=== PATIENT | male | born 1975 | race Caucasian/White ===

== ENCOUNTER 2020-09-14 18:35 | Observation (INO) | payer SELFPAY ==
[2020-09-14] VITALS (7 sets, daily range): BP systolic 151–159; BP diastolic 101–111; PULSE 111–126; RESP 18–26; TEMP 36.1–36.9; O2SAT 92–99; BMI 43.9
--- NOTE | ~2020-09-14 | XR_ITS ---
EXAMINATION: XR chest 1V portable DATE: 09/14/2020 19:44 INDICATION: Shortness of breath. Chest pain on inspiration. Cough. TECHNIQUE: A single frontal view of the chest was obtained. COMPARISON: None. FINDINGS: The chest demonstrates clear lungs without pneumonia, pleural effusion, or pneumothorax. Th e heart size is normal. IMPRESSION: 1. No acute cardiopulmonary disease. Reviewed, dictated and finalized at location A.
--- NOTE | 2020-09-14 19:05 | ECG_ITS ---
Measurements Intervals [place] Rate: 118 P: 71 KS: 120 QRS: 55 QRSD: 76 T: 88 QT: 307 QTc: 432 Interpretive Statements SINUS TACHYCARDIA BORDERLINE T WAVE ABNORMALITY- HIGH LATERAL LEADS ABNORMAL ECG Electronically Signed On 09-14-2020 19:54:22 CDT by Ron Ford D.O.
[2020-09-14 19:20] LABS: Basophils Absolute Auto 0.08 K/mm3 (0.00-0.10); Basophils Percent Auto 0.5 % (0.0-1.0); Eosinophils Absolute Auto 0.28 K/mm3 (0.02-0.50); Eosinophils Percent Auto 1.8 % (1.0-6.0); Hematocrit 42.9 % (40.0-54.0); Hemoglobin 14.3 g/dL (14.0-18.0); Immature Granulocyte Absolute 0.06 K/mm3 (0.00-0.00); Immature Granulocyte Percent A 0.4 % (0.0-0.0); Lymphocytes Absolute Auto 1.92 K/mm3 (1.10-4.50); Lymphocytes Percent Auto 12.1 % (18.0-42.0); Mean Corpuscular HGB Conc 33.3 g/dL (32.0-36.0); Mean Corpuscular Hemoglobin 29.1 pg (27.0-31.0); Mean Corpuscular Volume 87.4 fL (78.0-102.0); Mean Platelet Volume 9.2 fl (8.7-11.0); Monocytes Percent Auto 6.9 % (2.0-11.0); Neutrophils Absolute Auto 12.4 K/mm3 (1.7-7.2); Neutrophils Percent Auto 78.3 % (50.0-70.0); Platelet Count Result 322 K/mm3 (150-420); Red Blood Count 4.91 M/mm3 (4.70-6.10); Red Cell Distribution Width 13.2 % (11.6-14.4); White Blood Count 15.9 K/mm3 (4.8-10.8)
--- NOTE | 2020-09-14 19:28 | ED.GENADULT ---
HPI - General Adult General Chief complaint: Shortness of Breath/Dyspnea Stated complaint: SOB, cough Source: patient Mode of arrival: ambulatory Limitations: no limitations History of Present Illness HPI narrative: Alex is a 45M with a PMH of tobacco abuse, obesity and hypertension that presented to the ED with shortness of breath. He started feeling bad yesterday morning with fatigue and congestion. It progressed to shortness of breath, a dry cough, fatigue, and several loose stools. He denies lightheadedness and chest pain. Related Data Home Medications Medication Instructions Recorded Confirmed losartan 25 mg PO DAILY 09/14/20 09/14/20 Allergies Allergy/AdvReac Type Severity Reaction Status Date / Time No Known Allergies Allergy Verified 09/14/20 18:52 Review of Systems Constitutional: Constitutional: Reports as per HPI, Reports chills and Reports fatigue Eyes: Eyes: Reports as per HPI and Reports no additional eye complaints ENT: Reports as per HPI Cardiovascular: Cardiovascular: Reports as per HPI Respiratory: Respiratory: Reports as per HPI Gastrointestinal: Gastrointestinal: Reports as per HPI Genitourinary: Genitourinary: Reports no additional male genitourinary complaints Musculoskeletal: Musculoskeletal: Reports no additional musculoskeletal complaints Integumentary/Breasts: Skin/Breast: Reports system reviewed and no additional complaints, except as docu Neurologic: Reports system reviewed and no additional complaints, except as documented Endocrine: Endocrine: Reports no additional endocrine complaints Hematologic/Lymphatic: Hematologic/Lymphatic: Reports no additional hematologic/lymphatic complaints Allergic/Immunologic: Allergic/Immunologic: Reports no additional allergic/immunologic complaints Exam Const: General: alert; No confusion Orientation/consciousness: patient oriented x3 Limitations: No altered mental status Other: In mild to moderate distress with increased work of breathing. HENMT: Head: normal to inspection Mouth: Yes Normal oral and palatal mucosa present Other: atraumatic Eyes: Pupils: Equal, round and reactive pupils present Neck: Neck: normal visual inspection Chest: Chest palpation & inspection: normal inspection of the chest Resp: Effort & Inspection: labored, tachypneic and uses accessory muscles Other: Bilateral rales from the mid lung down Cardio: Rate: tachycardic Heart sounds: no murmurs GI: Inspection: non-distended GI Palp: Yes Soft to palpation, No Tenderness to palpation present (GI) and No Guarding due to palpation present (GI) Back/Spine/Pelvis: Back: no CVA tenderness Skin: General skin exam: normal color Rashes: no rashes Neuro: General: patient oriented x3, moves all extremities, no meningeal signs, no focal motor deficits and CN's II-XI intact bilaterally Speech: normal speech Extrem: General: normal to inspection Psych: Appearance: grossly normal Mental Status: mental status grossly normal Affect: normal affect Course Course Emergency Course: Christiano was evaluated. He was given albuterol for the wheezing. Labs came back with leukocytosis but otherwise largely unremarkable. However, his clinical presentationis concerning for sepsis so cultures were collected and he was given 750 of levaquin and started on fluids. EKG showed NSR with a rate of 118, normal axis, and no ST elevation/depression He will be admitted for observation and continued treatment. Vital Signs Vital signs: Vital Signs Pulse Rate 126 H 09/14/20 18:54 Temperature 98.4 F 09/14/20 21:43 Pulse Rate 111 H 09/14/20 21:43 Respiratory Rate 22 H 09/14/20 21:43 Blood Pressure 151/101 H 09/14/20 21:43 Pulse Oximetry 95 09/14/20 21:43 Medical Decision Making Vital Signs Vital Signs: Vital Signs Pulse Rate 126 H 09/14/20 18:54 Temperature 98.4 F 09/14/20 21:43 Pulse Rate 111 H 09/14/20 21:43 Respiratory Rate
[2020-09-14 19:33] LABS: D Dimer 0.19 mg/L (0.19-0.50); Prothrombin Time 10.6 Seconds (9.50-12.10)
[2020-09-14 19:37] LABS: Lactic Acid Reflex 1.1 mmol/L (0.4-2.0)
[2020-09-14 19:43] LABS: Alanine Aminotransferase 61 U/L (16-63); Alkaline Phosphatase 108 U/L (46-116); Anion Gap 11 mmol/L (8-16); Aspartate Amino Transferase 23 U/L (15-37); Bilirubin,Total 0.7 mg/dL (0.00-1.00); Blood Urea Nitrogen 11 mg/dL (7-18); Calcium 9.4 mg/dL (8.5-10.1); Carbon Dioxide 25 mmol/L (21-32); Chloride 99 mmol/L (98-108); Estimated CRCL calculation 122 ml/min; Estimated Glomerular Filt Rate > 60; Glucose 118 mg/dL (70-99); Osmolality Calculated 280 mOsm/kg (285-295); Potassium 4.1 mmol/L (3.5-5.1); Sodium 135 mmol/L (136-145); Total Protein 7.9 g/dL (6.4-8.2); Troponin I 4.7 ng/L (0.00-60.4)
[2020-09-14 19:46] LABS: NT Pro B Type Natriuretic Pept 23 pg/mL (0-125)
[2020-09-14 19:56] LABS: Influenza A QL RT-PCR Negative (Negative); Influenza B QL RT-PCR Negative (Negative); SARS-CoV-2 RNA PCR Negative (Negative)
[2020-09-14] MEDS: SODIUM CHLORIDE 0.9% IV 1,000 ML 999 ML IV CONT ×2 (20:45→22:51)
[2020-09-14] MEDS: ALBUTEROL SULFATE (*SP) INHALER 2 PUFF INHALATION (20:57)
--- NOTE | 2020-09-14 21:50 | ADMGEN ---
This patient, Alex Pulido, was admitted to 2nd Floor Room 209-1. Patient oriented to hospital policies and general routines including ID bracelet, bed and alarms, visiting hours, pain management, procedures, bathroom and other care routines, personal items, smoking policy, room service/diet, and visiting hours. Information on how to activate the Rapid Response Team has been discussed. Patient/Family are encouraged to report perceived risks to care and to ask questions if they do not understand what they are told or what they should do.
[2020-09-15] VITALS (11 sets, daily range): BP systolic 125–169; BP diastolic 92–132; PULSE 102–128; RESP 22–28; TEMP 36.4–37.2; O2SAT 94–98
[2020-09-15] MEDS: SODIUM CHLORIDE 0.9% IV 1,000 ML 150 ML IV CONT ×2 (00:02→08:48)
[2020-09-15] MEDS: HYDROcodone/acetaminophen (*CRX) 5-325 MG TABLET 1 TAB PO (00:47)
[2020-09-15 05:28] LABS: Basophils Absolute Auto 0.06 K/mm3 (0.00-0.10); Basophils Percent Auto 0.5 % (0.0-1.0); Eosinophils Absolute Auto 0.44 K/mm3 (0.02-0.50); Hematocrit 38.9 % (40.0-54.0); Hemoglobin 12.6 g/dL (14.0-18.0); Immature Granulocyte Absolute 0.03 K/mm3 (0.00-0.00); Immature Granulocyte Percent A 0.3 % (0.0-0.0); Lymphocytes Absolute Auto 2.31 K/mm3 (1.10-4.50); Lymphocytes Percent Auto 21.1 % (18.0-42.0); Mean Corpuscular HGB Conc 32.4 g/dL (32.0-36.0); Mean Corpuscular Hemoglobin 29.2 pg (27.0-31.0); Mean Corpuscular Volume 90.3 fL (78.0-102.0); Mean Platelet Volume 9.2 fl (8.7-11.0); Monocytes Absolute Auto 0.88 K/mm3 (0.10-0.90); Neutrophils Absolute Auto 7.2 K/mm3 (1.7-7.2); Neutrophils Percent Auto 66.1 % (50.0-70.0); Platelet Count Result 291 K/mm3 (150-420); Red Blood Count 4.31 M/mm3 (4.70-6.10); Red Cell Distribution Width 13.6 % (11.6-14.4)
[2020-09-15 05:36] LABS: Anion Gap 9 mmol/L (8-16); Blood Urea Nitrogen 12 mg/dL (7-18); Calcium 8.5 mg/dL (8.5-10.1); Carbon Dioxide 27 mmol/L (21-32); Chloride 103 mmol/L (98-108); Estimated CRCL calculation 133 ml/min; Estimated Glomerular Filt Rate > 60; Glucose 103 mg/dL (70-99); Osmolality Calculated 287 mOsm/kg (285-295); Potassium 3.9 mmol/L (3.5-5.1); Sodium 139 mmol/L (136-145)
[2020-09-15 05:39] LABS: Estimated CRCL calculation 132 ml/min; Estimated Glomerular Filt Rate > 60
--- NOTE | 2020-09-15 07:57 | PM.IMHP ---
H&P: HPI History of Present Illness Date/Time: This is a same-day discharge 09/15/20 07:57 this is a 45-year-old obese male that presented to urgent care with shortness of breath and a cough. Patient has a past medical history of tobacco dependency, obesity and hypertension. According to patient he started feeling ill 2 days ago with shortness of breath ,cough fatigue and loose stool. Patient notes that his shortness of breath worsened exertion. Patient has smoked over 20 years but have not officially diagnosed with COPD. On admission patient's temp 98.9, heart rate 112, respiratory rate 28, sats 97% on 2 L nasal cannula and blood pressure 125/92. Patient is influenza and Covid negative, WBCs 11, hemoglobin 12.6, hematocrit 38.9, platelets 291, sodium 135, potassium 4.1, BUN 11, creatinine 0.93, 118, lactic acid 1.1, troponin 4.7, BUN 23. Patient being admitted for respiratory distress, and SIRS. Patient was able to walk up and down the [place] without any shortness of breath he will have a home O2 eval completed we are attempting to titrate oxygen off patient is day. Patient notes that his condition has improved and he believes he is ready for discharge today. Disposition: Patient will discharge home with self-care once stabilized Observation Time spent with patient 60 minutes Chief Complaint: Shortness of breath Review of Systems Review of Systems: Narrative: A 14 organ system Review of Systems was performed and pertinent positives included in the HPI, otherwise remaining ROS is negative. [facility] Family History Family History (Updated 09/15/20 @ 00:02 by Roxana Bryant RN) Father Hypertension Mother Hypertension Sibling Asthma Social History Social History Years smoked: 29 Smoking status: Light tobacco smoker Tobacco type: cigarettes Second hand tobacco smoke exposure: No Alcohol intake: current Drinks per week: 1 Substance use: current Substance use type: marijuana Spiritual care concerns: No Meds Home Medications and Allergies Home Medications Medication Instructions Recorded Confirmed Type losartan 25 mg PO DAILY 09/14/20 09/14/20 History tramadol 50 mg PO Q6H PRN #15 tablet 09/15/20 Rx Allergies Allergy/AdvReac Type Severity Reaction Status Date / Time No Known Allergies Allergy Verified 09/14/20 18:52 Vital Signs Vital Signs - 24 hr 09/14/20 18:54 09/14/20 18:55 09/14/20 20:57 Temperature 97 F L Pulse Rate 126 H 125 H 117 H Respiratory Rate 26 H 18 Blood Pressure 159/111 H Pulse Oximetry 95 92 09/14/20 21:00 09/14/20 21:43 09/14/20 21:54 Temperature 98.4 F Pulse Rate 123 H 111 H 116 H Respiratory Rate 18 22 H 24 H Blood Pressure 151/101 H Pulse Oximetry 94 95 99 09/14/20 22:30 09/15/20 00:00 09/15/20 00:05 Temperature 98.9 F Pulse Rate 113 H 112 H 112 H Respiratory Rate 28 H Blood Pressure 125/92 H Pulse Oximetry 97 09/15/20 04:00 09/15/20 04:47 Temperature 97.6 F Pulse Rate 104 H 104 H Respiratory Rate 22 H Blood Pressure 169/108 H Pulse Oximetry 96 H&P: Results Labs Labs: Short CBC 09/14/20 09/15/20 Range/Units 19:15 05:22 WBC 15.9 H 11.0 H (4.8-10.8) K/mm3 Hgb 14.3 12.6 L (14.0-18.0) g/dL Hct 42.9 38.9 L (40.0-54.0) % Plt Count 322 291 (150-420) K/mm3 BMP 09/14/20 09/15/20 09/15/20 19:15 05:22 05:22 Sodium 135 L 139 Potassium 4.1 3.9 Chloride 99 103 Carbon Dioxide 25 27 BUN 11 12 Creatinine 0.93 0.86 0.87 Glucose 118 H 103 H Calcium 9.4 8.5 Cardiac Enzymes 09/14/20 Range/Units 19:15 Troponin I 4.7 (0.00-60.4) ng/L Liver Function 09/14/20 Range/Units 19:15 Total Bilirubin 0.7 (0.00-1.00) mg/dL AST 23 (15-37) U/L ALT 61 (16-63) U/L Alkaline Phosphatase 108 (46-116) U/L Albumin 4.0 (3.4-5.0) g/dL Assessment and Plan Assessment and plan (1) SIRS (
[2020-09-15] MEDS: guaiFENesin 12 HR 600 MG TABCR 1200 MG PO (08:47)
[2020-09-15] MEDS: LOSARTAN POTASSIUM 50 MG TABLET PO (08:47)
[2020-09-15] MEDS: BENZONATATE 100 MG CAPSULE 200 MG PO (08:47)
[2020-09-15] MEDS: ENOXAPARIN 40 MG/0.4 ML SYRINGE SUB-Q (08:48)
[2020-09-15] MEDS: methylPREDNISolone SOD SUCC 125 MG VIAL IV PUSH (09:03)
[2020-09-15 09:22] LABS: Erythrocyte Sedimentation Rate 26 mm/hr (0-15)
--- NOTE | 2020-09-15 10:47 | HOMEO2EVAL ---
Evaluation was performed at [facility] Home Oxygen Evaluation RC: Home Oxygen (O2) Evaluation Start: 09/15/20 10:34 Freq: ONCE Status: Active Protocol: RPE Activity Type Activity Date Activity User E-Sign Co-Sign Detail Recorded Client Recorded Date Recorded By Document 09/15/20 10:00 REYES [id number] 09/15/20 10:47 SJB Document 09/15/20 10:01 Derrek [id number] 09/15/20 10:47 SJB 09/15/20 09/15/20 10:00 10:01 Home O2 Evaluation Test Phase Resting Exercise Oxygen Delivery Room Air Room Air Pulse Oximetry (90-100 %) 95 94 Pulse Rate (60-100 beats/min) 110 H 126 H Activity Tolerance Good Excellent Rating of Perceived Dyspnea (PD) +2 Mild, Some Difficulty, Noticeable to the Observer Rate of Perceived Exertion (PE) 11 Fairly light Ambulation Distance (feet) 450 Home Oxygen Evaluation Comments PT WALKED 450 FT ON ROOM AIR. SP02 STAYED AT 94%, HR UP TO 126. TOLERATED WELL. PLB ENCOURAGED . Treatment Charges O2 Evaluation - Outpatient
[2020-09-15] MEDS: hydrALAZINE HCL 20 MG/ML VIAL 5 MG IV PUSH (10:53)
--- NOTE | 2020-09-15 14:31 | PC.NURSE ---
1425 amb with nurse to dc. to home. dc instructions went over and vocalizes an understanding. sitting on bench waitng for mother.
--- NOTE | 2020-09-16 13:26 | PC.NURSE ---
Pt states he received and understood his discharge instructions. He has no other comments.
== END 2020-09-15 14:25 | disposition home or self-care (01) ==
LOC: CHSED 18:38 → CHS2ND 21:43
PROVIDERS: Nurse Practitioner; Admitting Provider Family Medicine; Emergency Provider Family Medicine; Visit Provider Family Medicine
DX: R06.03 Acute respiratory distress (principal); R65.10 Systemic inflammatory response syndrome (SIRS) of non-infectious origin without acute organ dysfunction; I10 Essential (primary) hypertension; R05 Cough; R53.83 Other fatigue; R19.7 Diarrhea, unspecified; E66.9 Obesity, unspecified; F17.200 Nicotine dependence, unspecified, uncomplicated; Z20.822 Contact with and (suspected) exposure to COVID-19
CPT/HCPCS: 36415; 71045; 80048; 80053; 82565; 83605; 83880; 84484; 85025; 85380; 85610; 85652; 86140; 87040; 87086; 87502; 93005; 94618; 94640; 96361; 96365; 96366; 96372; 96375; 99285; A9270; C9803; G0378; G0379; J0360; J1650; J1956; J2930; J3370; J7030; U0003; U0005